=== PATIENT | male | born 1965 | race Caucasian/White ===

== ENCOUNTER 2022-03-01 09:49 | Outpatient (CLI) | payer OTHER ==
[2022-03-01 20:30] LABS: SARS-CoV-2 PCR by NAA Not Detected (NotDetected)
== END 2022-03-01 09:50 | disposition home or self-care (01) ==
LOC: CSHLAB 09:49
PROVIDERS: ATTEND Surgery
DX: Z20.822 Contact with and (suspected) exposure to COVID-19 (principal); K80.20 Calculus of gallbladder without cholecystitis without obstruction
CPT/HCPCS: U0003; U0005

== ENCOUNTER 2022-03-04 07:56 | Day surgery (SDC) | payer OTHER ==
[2022-03-02 14:14] VITALS: BMI 29.2
[2022-03-04] MEDS ORDERED: Lidocaine 1% MPF 2 ML VIAL ONE (08:44)
[2022-03-04] MEDS ORDERED: Bupivacaine PF 0.5% 30 ML VIAL ONE (08:54)
[2022-03-04] MEDS ORDERED: EPINEPHrine 1 MG/ML AMP ONE (08:55)
[2022-03-04] MEDS ORDERED: Lidocaine 1% PF 5 ML VIAL ONE (09:21)
[2022-03-04] MEDS ORDERED: Ondansetron PF 4 MG/2 ML Vial ONE (09:21)
[2022-03-04] MEDS ORDERED: Dexamethasone 4 mg/ml Vial ONE (09:21)
[2022-03-04] MEDS ORDERED: Rocuronium Bromide 10 MG/ML (10ML VIAL) ONE (09:21)
[2022-03-04] MEDS ORDERED: Ketorolac Tromethamine 30 MG/ML VIAL ONE (09:22)
[2022-03-04] MEDS ORDERED: Fentanyl 100 MCG/2 ML VIAL ONE ×5 (09:22→10:48)
[2022-03-04] MEDS ORDERED: PROPOFOL 20 ML ONE (09:22)
[2022-03-04] MEDS ORDERED: Glycopyrrolate 0.2 MG/ML 5 ML SYRINGE ONE (09:26)
[2022-03-04] MEDS ORDERED: ceFAZolin 2 GM/Dextrose 50 ML IVPB ONE (09:27)
[2022-03-04] MEDS ORDERED: ePHEDrine Sulfate 50 MG/10 ML VIAL ONE (09:48)
[2022-03-04] MEDS ORDERED: HYDROcodone/Acetaminophen 5/325 mg Tablet PO PRN (10:46)
[2022-03-04] MEDS ORDERED: Acetaminophen 325 MG TAB PO PRN (10:46)
== END 2022-03-04 11:40 | disposition home or self-care (01) ==
LOC: CSHSDC 07:56
PROVIDERS: ATTEND Surgery
PROC: 0FT44ZZ Resection of Gallbladder, Percutaneous Endoscopic Approach (ICD-10-PCS; principal; 2022-03-04)
DX: K80.10 Calculus of gallbladder with chronic cholecystitis without obstruction (principal); K42.9 Umbilical hernia without obstruction or gangrene; Z79.899 Other long term (current) drug therapy; Z79.82 Long term (current) use of aspirin; F32.A Depression, unspecified; E11.9 Type 2 diabetes mellitus without complications; I10 Essential (primary) hypertension; G40.909 Epilepsy, unspecified, not intractable, without status epilepticus; F17.210 Nicotine dependence, cigarettes, uncomplicated
CPT/HCPCS: 88304; C1776; J0171; J0690; J1100; J1885; J2405; J2704; J3010; S0020